=== PATIENT | female | born 1990 | race Caucasian/White ===

== ENCOUNTER 2020-06-04 10:20 | Emergency (ER) | payer OTHER, MEDICAID ==
[~2020-06-04] VITALS: Ht 165.1 cm; Wt 70.3 kg
[2020-06-04 10:26] VITALS: BP 118/59
[2020-06-04] MEDS ORDERED: METOCLOPRAMIDE 10 MG/2 ML INJ VIAL IM ONE (11:05)
--- NOTE | 2020-06-04 11:17 | NUR ---
PT IS 9 WEEKS AND IS C/O HYPEREMESIS X3 DAYS. PATIENT STATES SHE HAS BEEN VOMITING ENTIRE , BUT LAST 3-4 DAYS HAVE BEEN WORSE. DENIES ANY VAGINAL BLEEDING. STATES SHE IS FEELING LIGHTHEADED AND DIZZY WHEN STANDING UP. NO PMH NKDA
[2020-06-04 13:37] VITALS: BP 118/59
--- NOTE | 2020-06-04 13:37 | NUR ---
PATIENT ELOPED FROM FACILITY. DISCHARGE INSTRUCTIONS NOT GIVEN TO PATIENT. DR. MCCLOUD NOTIFIED.
== END 2020-06-04 13:30 | disposition left against medical advice (07) ==
LOC: MED 10:20
DX: O21.8 Other vomiting complicating pregnancy (principal); Z3A.11 11 weeks gestation of pregnancy
CPT/HCPCS: 81002; 81025; 96372; 99283; J2765